=== PATIENT | female | born 1955 | race African-American/Black ===

== ENCOUNTER 2016-12-12 09:54 | Emergency (ER) | payer OTHER ==
[~2016-12-12] VITALS: Ht 157.5 cm; Wt 64.4 kg
--- NOTE | ~2016-12-12 | EKG ---
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: WOLFGANG : 1955 Requested By: Coretta Lamb Order Number: [id number] MD: Jos Mathew Measurements Intervals [place] Rate: 85 P: 87 [place]: 161 QRS: 86 QRSD: 89 T: 60 QT: 362 QTc: 431 Interpretive Statements Sinus rhythm [place], consider biatrial enlargement Borderline right axis deviation Left ventricular hypertrophy Baseline wander in lead(s) V5 No previous ECG available for comparison Electronically Signed On 12-13-2016 7:19:29 CDT by Jos Mathew [email or web address] <ELECTRONICALLY SIGNED> By: Jos Mathew MD, [facility] 12/13/16 0719 1004 1004 Jos Mathew MD, [facility] /EPI
[~2016-12-12 09:54] MED LIST: ATENOLOL 25MG T25 MG PO; HCTZ PO; NORCO 5-325 TA1 EACH PO; ZEPATIER 50-101 EACH PO; ZOFRAN4 MG PO
[2016-12-12 10:16] LABS: ABSOLUTE NEUTROPHILS 3.5 thou/uL (1.4-8.2); BASOPHILS 0.9 % (0.0-2.0); EOSINOPHILS 0.5 % (0.0-3.0); HEMATOCRIT 39.7 % (37.0-47.0); HEMOGLOBIN 13.3 gm/dL (12.0-15.0); LYMPHOCYTES 33.9 % (24.0-44.0); MCH 27.8 pg (26.0-34.0); MCHC 33.6 g/dL (28.0-37.0); MCV 82.6 fL (80.0-100.0); MONOCYTES 7.2 % (1.0-8.0); PLATELET COUNT 354 thou/uL (150-400); POLYS 57.5 % (36.0-66.0); RDW 12.7 % (10.5-14.5)
[2016-12-12 10:17] LABS: MANUAL DIFF NO
[2016-12-12 10:29] LABS: CALCIUM 9.4 mg/dL (8.5-10.1); CREATININE 1.1 mg/dL (0.6-1.3)
[2016-12-12 11:18] VITALS: BP 127/79
== END 2016-12-12 11:20 | disposition home or self-care (01) ==
LOC: ER 09:54
PROVIDERS: Emergency Medicine
DX: R06.00 Dyspnea, unspecified (principal); E87.6 Hypokalemia; R00.2 Palpitations; I10 Essential (primary) hypertension; Z90.710 Acquired absence of both cervix and uterus; Z98.890 Other specified postprocedural states; Z88.8 Allergy status to other drugs, medicaments and biological substances

== ENCOUNTER 2018-10-09 01:28 | Emergency (ER) | payer OTHER ==
[~2018-10-09] VITALS: Ht 157.5 cm; Wt 63.0 kg
[~2018-10-09 01:28] MED LIST changes: +FLONASE 0.05%50 MCG NASAL; +TESSALON PERLE100 MG PO; +ZYRTEC10 M2 PO
[2018-10-09 01:55] LABS: ABSOLUTE NEUTROPHILS 2.4 thou/uL (1.4-8.2); BASOPHILS 0.8 % (0.0-2.0); EOSINOPHILS 0.6 % (0.0-3.0); HEMATOCRIT 37.5 % (37.0-47.0); HEMOGLOBIN 12.7 gm/dL (12.0-15.0); LYMPHOCYTES 53.7 % (24.0-44.0); MCH 27.8 pg (26.0-34.0); MCHC 33.7 g/dL (28.0-37.0); MCV 82.5 fL (80.0-100.0); MONOCYTES 9.1 % (1.0-8.0); PLATELET COUNT 337 thou/uL (150-400); POLYS 35.8 % (36.0-66.0); RBC 4.55 mil/uL (4.20-5.00); RDW 13.5 % (10.5-14.5); WBC 6.6 thou/uL (4.0-11.0)
[2018-10-09 02:09] LABS: ANION GAP 8 mmol/L (7-16); BUN 13 mg/dL (7-18); CALCIUM 8.9 mg/dL (8.5-10.1); CHLORIDE 103 mmol/L (98-107); CO2 28 mmol/L (21-32); CREATININE 0.9 mg/dL (0.6-1.0); GLUCOSE 105 mg/dL (74-106); POTASSIUM 3.9 mmol/L (3.5-5.1); SODIUM 139 mmol/L (136-145)
[2018-10-09 02:13] LABS: ALBUMIN 3.5 g/dL (3.4-5.0); SGOT 31 U/L (15-37); SGPT 20 U/L (30-65); TOTAL BILIRUBIN 0.5 mg/dL (<0.1-1.0); TROPONIN-I <0.06 ng/mL (<0.06)
[2018-10-09] MEDS ORDERED: FLEXERIL PO (02:51)
[2018-10-09 02:56] VITALS: BP 142/75
--- NOTE | 2018-10-09 08:52 | EKG ---
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 : 1955 Requested By: Alicia Obrien Order Number: [id number] MD: Jos Mathew Measurements Intervals [place] Rate: 110 P: 70 RI: 188 QRS: 86 QRSD: 87 T: 12 QT: 339 QTc: 459 Interpretive Statements Sinus tachycardia Right atrial abnormality Borderline right axis deviation Probable left ventricular hypertrophy Compared to ECG 12/12/2016 10:04:34 Heart rate has increased Electronically Signed On 10-09-2018 8:52:29 LINE INSPECTOR by Jos Mathew [email or web address] <ELECTRONICALLY SIGNED> By: Jos Mathew MD, [facility] 10/09/18 0852 0149 8 Jos Mathew MD, [facility] /EPI
== END 2018-10-09 02:57 | disposition home or self-care (01) ==
LOC: ER 01:28
PROVIDERS: Student in an Organized Health Care Education/Training Program
DX: M54.6 Pain in thoracic spine (principal); R01.1 Cardiac murmur, unspecified; I10 Essential (primary) hypertension; Z90.710 Acquired absence of both cervix and uterus; Z90.49 Acquired absence of other specified parts of digestive tract; Z98.890 Other specified postprocedural states; Z88.8 Allergy status to other drugs, medicaments and biological substances

== ENCOUNTER 2020-08-27 06:03 | Emergency (ER) | payer OTHER ==
[~2020-08-27] VITALS: Ht 157.5 cm; Wt 64.4 kg
[~2020-08-27 06:03] MED LIST changes: +FLEXERIL PO
[2020-08-27 06:40] LABS: ABSOLUTE NEUTROPHILS 2.3 thou/uL (1.4-8.2); BASOPHILS 1.1 % (0.0-2.0); EOSINOPHILS 0.6 % (0.0-3.0); HEMATOCRIT 38.3 % (37.0-47.0); HEMOGLOBIN 12.7 gm/dL (12.0-15.0); LYMPHOCYTES 41.1 % (24.0-44.0); MCH 28.4 pg (26.0-34.0); MCHC 33.1 g/dL (28.0-37.0); MCV 85.7 fL (80.0-100.0); MONOCYTES 8.2 % (1.0-8.0); PLATELET COUNT 315 thou/uL (150-400); RBC 4.47 mil/uL (4.20-5.00); RDW 13.2 % (10.5-14.5); WBC 4.6 thou/uL (4.0-11.0)
[2020-08-27 06:47] LABS: ANION GAP 11 mmol/L (7-16); BUN 19 mg/dL (7-18); CHLORIDE 104 mmol/L (98-107); CO2 27 mmol/L (21-32); GLUCOSE 121 mg/dL (74-106); POTASSIUM 3.3 mmol/L (3.5-5.1); SODIUM 142 mmol/L (136-145)
[2020-08-27 06:56] LABS: TROPONIN-I <0.06 ng/mL (<0.06)
[2020-08-27] MEDS ORDERED: MOBIC15 MG PO ×2 (07:57→08:15)
[2020-08-27] MEDS ORDERED: CYCLOBENZAPRINE5 MG PO ×2 (07:57→08:15)
[2020-08-27 08:00] VITALS: BP 146/74
--- NOTE | 2020-08-27 09:58 | EKG ---
[facility] [place] [address] ELECTROCARDIOGRAM REPORT Name: ANGELY SARAVIA Room #: [facility]#: [id number] Admission: 08/27/20 Attend Phys: Discharge: 08/27/20 Date of : 57 Report #: [id number] THIS REPORT FOR: cc: Pebbles Buck Diane C. 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1955 Requested By: Nivia Dunham Order Number: [id number] MD: Jos Mathew Measurements Intervals [place] Rate: 117 P: 79 [place]: 169 QRS: 86 QRSD: 90 T: 8 QT: 329 QTc: 459 Interpretive Statements Sinus tachycardia Biatrial enlargement Borderline right axis deviation Compared to ECG 10/09/2018 01:49:44 No significant changes Electronically Signed On 08-27-2020 9:58:43 PET CARE ASSISTANT by Jos Mathew [email or web address] <ELECTRONICALLY SIGNED> By: Jos Mathew MD, [facility] 08/27/20 0958 4 4 Jos Mathew MD, [facility] /EPI
== END 2020-08-27 08:31 | disposition home or self-care (01) ==
LOC: ER 06:03
PROVIDERS: Emergency Medicine
DX: M25.512 Pain in left shoulder (principal); R00.0 Tachycardia, unspecified; M54.2 Cervicalgia; I10 Essential (primary) hypertension; Z90.711 Acquired absence of uterus with remaining cervical stump; Z90.49 Acquired absence of other specified parts of digestive tract; Z98.890 Other specified postprocedural states; Z79.899 Other long term (current) drug therapy; Z88.8 Allergy status to other drugs, medicaments and biological substances; X50.1XXA Overexertion from prolonged static or awkward postures, initial encounter; Y93.89 Activity, other specified; Y92.098 Other place in other non-institutional residence as the place of occurrence of the external cause; Y99.8 Other external cause status

== ENCOUNTER 2021-07-12 15:25 | Emergency (ER) | payer BC, OTHER ==
[~2021-07-12] VITALS: Ht 157.5 cm; Wt 63.5 kg
[~2021-07-12 15:25] MED LIST changes: +CYCLOBENZAPRINE5 MG PO; +MOBIC15 MG PO
[2021-07-12 17:14] LABS: URINE BILIRUBIN NEGATIVE (Negative); URINE BLOOD NEGATIVE (Negative); URINE CLARITY CLEAR; URINE GLUCOSE-RANDOM* NEGATIVE (Negative); URINE KETONES NEGATIVE (Negative); URINE LEUKOCYTES-REFLEX NEGATIVE (Negative); URINE NITRITE-REFLEX NEGATIVE (Negative); URINE PROTEIN (DIPSTICK) NEGATIVE (Negative); URINE UROBILINOGEN 0.2 E.U./dl (0.2-1.0)
[2021-07-12 17:16] LABS: URINE COLOR STRAW
[2021-07-12 17:54] LABS: ABSOLUTE NEUTROPHILS 3.6 thou/uL (1.4-8.2); BASOPHILS 0.6 % (0.0-2.0); EOSINOPHILS 0.1 % (0.0-3.0); HEMATOCRIT 38.9 % (37.0-47.0); HEMOGLOBIN 12.3 gm/dL (12.0-15.0); LYMPHOCYTES 20.1 % (24.0-44.0); MCHC 31.6 g/dL (28.0-37.0); MCV 85.3 fL (80.0-100.0); MONOCYTES 5.3 % (1.0-8.0); PLATELET COUNT 302 thou/uL (150-400); POLYS 73.9 % (36.0-66.0); RBC 4.56 mil/uL (4.20-5.00); RDW 13.7 % (10.5-14.5); WBC 4.9 thou/uL (4.0-11.0)
[2021-07-12 18:15] LABS: CREATININE 0.9 mg/dL (0.6-1.0); MAGNESIUM 2.1 mg/dL (1.8-2.4); TOTAL BILIRUBIN 0.2 mg/dL (0.2-1.0); TOTAL PROTEIN 8.2 g/dL (6.4-8.2)
[2021-07-12 18:24] LABS: POTASSIUM 3.4 mmol/L (3.5-5.1)
[2021-07-12 18:50] VITALS: BP 155/80
[2021-07-12 20:29] LABS: ALBUMIN 3.8 g/dL (3.4-5.0)
--- NOTE | 2021-07-13 07:19 | EKG ---
[address] [address] [address] [facility] [place] [address] ELECTROCARDIOGRAM REPORT Name: ANGELY SARAVIA [id number] Admission: 07/12/21 Attend Phys: Discharge: 07/12/21 Date of : 57 Report #: [id number] [facility] ED Test Date: 2021-07-12 Test Time: 15:30:38 Pat Name: ANGELY SARAVIA Department: Room: Gender: F Ui Lead Developer: UNKNOWN : 1955 Requested By: Javier Marquez Order Number: [id number] MD: Pacheco Fraser Measurements Intervals [place] Rate: 114 P: 60 ME: 137 QRS: 79 QRSD: 86 T: 57 QT: 319 QTc: 440 Interpretive Statements Sinus tachycardia Biatrial enlargement Compared to ECG 08/27/2020 06:15:21 No significant changes Electronically Signed On 07-13-2021 7:18:48 CDT by Pacheco Fraser [email or web address] <ELECTRONICALLY SIGNED> By: Pacheco Fraser MD, [facility] 07/13/21 0718 1530 1530 Pacheco Fraser MD, [facility] /EPI
== END 2021-07-12 18:50 | disposition home or self-care (01) ==
LOC: ER 15:25
PROVIDERS: Emergency Medicine
DX: E86.0 Dehydration (principal); R42 Dizziness and giddiness; I10 Essential (primary) hypertension; Z90.710 Acquired absence of both cervix and uterus; Z90.49 Acquired absence of other specified parts of digestive tract; Z79.899 Other long term (current) drug therapy; Z88.8 Allergy status to other drugs, medicaments and biological substances